=== PATIENT | female | born 1935 | race Caucasian/White ===

== ENCOUNTER 2021-11-14 13:40 | Outpatient (CLI) | payer MEDICARE ==
[~2021-11-14 13:40] MED LIST: ALPR1TAB7 PO; FERR324T4 PO; LEVO75TA PO; LOSA50TA64 PO; MELA5TAB12 PO; MULT-1085 PO; UBID10CA4 PO
== END 2021-11-14 23:59 | disposition home or self-care (01) ==
LOC: RAD 13:40
PROVIDERS: ATTEND Nurse Practitioner Family
DX: R40.4 Transient alteration of awareness (principal)
CPT/HCPCS: 95816

== ENCOUNTER 2022-01-15 11:44 | Emergency (ER) | payer MEDICARE ==
[~2022-01-15] VITALS: Ht 157.5 cm; Wt 71.8 kg
[2022-01-15] MEDS ORDERED: furosemide 40mg/4ml inj IV ONE (14:50)
[2022-01-15 15:09] LABS: BASOPHILS # (AUTO) 0.1 X10'3 (0-0.2); BASOPHILS % (AUTO) 0.9 % (0-1); EOSINOPHILS # (AUTO) 0.2 X10'3 (0-0.9); HEMATOCRIT 37.7 % (35.0-45.0); LYMPHOCYTES # (AUTO) 1.3 X10'3 (1.1-4.8); LYMPHOCYTES % (AUTO) 20.5 % (21-51); MEAN CORPUSCULAR HEMOGLOBIN 25.9 PG (27.0-31.0); MEAN CORPUSCULAR HGB CONC 31.9 g/dL (33.0-36.5); MEAN CORPUSCULAR VOLUME 81.2 FL (78-98); MEAN PLATELET VOLUME 8.3 FL (7.4-10.4); MONOCYTES # (AUTO) 0.7 X10'3 (0-0.9); MONOCYTES % (AUTO) 10.6 % (2-12); NEUTROPHILS # (AUTO) 4.2 X10'3 (1.8-7.7); PLATELET COUNT 189 X10'3 (140-440); RED BLOOD COUNT 4.65 X10'6 (4.20-5.60); RED CELL DISTRIBUTION WIDTH 17.4 % (11.5-14.5); WHITE BLOOD COUNT 6.5 X10'3 (4.5-11.0)
[2022-01-15 15:26] LABS: ALANINE AMINOTRANSFERASE 15 U/L (12-78); ALBUMIN 3.6 G/DL (3.4-5.0); ALBUMIN/GLOBULIN RATIO 0.9 (1.1-1.5); ALKALINE PHOSPHATASE 82 IU/L (46-116); ANION GAP 9 (8-16); ASPARTATE AMINO TRANSFERASE 17 U/L (10-37); BILIRUBIN,TOTAL 0.6 MG/DL (0.1-1.0); BLOOD UREA NITROGEN 20 MG/DL (7-18); BUN/CREATININE RATIO 10.4 (6.6-38.0); CALCIUM 8.8 MG/DL (8.5-10.1); CHLORIDE 97 MMOL/L (99-107); CREATININE 1.93 MG/DL (0.40-0.90); GLUCOSE 104 MG/DL (70-104); POTASSIUM 3.7 MMOL/L (3.5-5.1); SODIUM 135 MMOL/L (135-145); TOTAL CARBON DIOXIDE 28.7 MMOL/L (24-32); TOTAL PROTEIN 7.6 G/DL (6.4-8.2); eGFR 25 ML/MIN
[2022-01-15 17:41] VITALS: BP 118/89
== END 2022-01-15 17:43 | disposition home or self-care (01) ==
LOC: ER 11:45
DX: R60.0 Localized edema (principal); G43.909 Migraine, unspecified, not intractable, without status migrainosus; I10 Essential (primary) hypertension; E03.9 Hypothyroidism, unspecified; I11.9 Hypertensive heart disease without heart failure; F31.9 Bipolar disorder, unspecified; Z79.899 Other long term (current) drug therapy
CPT/HCPCS: 36415; 80053; 83880; 85025; 93005; 96374; 99285; J1940

== ENCOUNTER 2022-02-19 12:13 | Outpatient (CLI) | payer MEDICARE | END 2022-02-19 23:59 | disposition home or self-care (01) | LOC: CARD DIAG 12:13 | PROVIDERS: ATTEND Internal Medicine Cardiovascular Disease | DX: I08.8 Other rheumatic multiple valve diseases (principal); I11.9 Hypertensive heart disease without heart failure; I48.91 Unspecified atrial fibrillation; Z86.73 Personal history of transient ischemic attack (TIA), and cerebral infarction without residual deficits | CPT/HCPCS: 93306 ==

== ENCOUNTER 2022-02-26 07:56 | Day surgery (SDC) | payer MEDICARE ==
[2022-02-25 15:43] LABS: ALBUMIN 3.6 G/DL (3.4-5.0); ANION GAP 8 (8-16); BLOOD UREA NITROGEN 26 MG/DL (7-18); BUN/CREATININE RATIO 14.9 (6.6-38.0); CALCIUM 8.9 MG/DL (8.5-10.1); CHLORIDE 97 MMOL/L (99-107); CREATININE 1.74 MG/DL (0.40-0.90); GLUCOSE 101 MG/DL (70-104); POTASSIUM 4.1 MMOL/L (3.5-5.1); SODIUM 134 MMOL/L (135-145); TOTAL CARBON DIOXIDE 28.7 MMOL/L (24-32); eGFR 28 ML/MIN
[2022-02-25 15:47] LABS: EOSINOPHILS # (AUTO) 0.2 X10'3 (0-0.9); MEAN CORPUSCULAR VOLUME 84.9 FL (78-98); MEAN PLATELET VOLUME 8.5 FL (7.4-10.4); NEUTROPHILS # (AUTO) 4.1 X10'3 (1.8-7.7); WHITE BLOOD COUNT 6.6 X10'3 (4.5-11.0)
[2022-02-25 15:48] LABS: BASOPHILS % (AUTO) 0.3 % (0-1); EOSINOPHILS % (AUTO) 2.5 % (0-6); HEMATOCRIT 40.1 % (35.0-45.0); HEMOGLOBIN 13.2 g/dl (12.0-16.0); LYMPHOCYTES # (AUTO) 1.5 X10'3 (1.1-4.8); LYMPHOCYTES % (AUTO) 23.5 % (21-51); MEAN CORPUSCULAR HEMOGLOBIN 28.1 PG (27.0-31.0); MONOCYTES # (AUTO) 0.7 X10'3 (0-0.9); MONOCYTES % (AUTO) 10.9 % (2-12); NEUTROPHILS % (AUTO) 62.8 % (42-75); PLATELET COUNT 212 X10'3 (140-440); RED BLOOD COUNT 4.72 X10'6 (4.20-5.60); RED CELL DISTRIBUTION WIDTH 27.2 % (11.5-14.5)
[2022-02-25 16:53] LABS: ANISOCYTOSIS 3+; ELLIPTOCYTES 1+; PLATELET ESTIMATE NORMAL
[2022-02-25 16:55] LABS: SCHISTOCYTES FEW
[2022-02-25 16:59] LABS: BURR CELLS FEW
[~2022-02-26] VITALS: Ht 154.9 cm; Wt 67.7 kg
[2022-02-26] VITALS (15 sets, daily range): BP systolic 113–151; BP diastolic 62–81
[2022-02-26] MEDS ORDERED: LORazepam 0.5 MG tablet PO ONE (09:25)
[2022-02-26] MEDS ORDERED: morphine 10mg/ml inj. IV ONE (09:25)
[2022-02-26] MEDS ORDERED: amiodarone 150mg/dext, iso-os 100 ML IV ONE (09:25)
[2022-02-26] MEDS ORDERED: atropine 0.1mg/ml 10ml syringe IV ONE (09:25)
[2022-02-26] MEDS ORDERED: MIDAZolam 1mg/ml 10ml vial IV ONE (09:25)
[2022-02-26] MEDS ORDERED: LOSA25TA41 PO (09:30)
[2022-02-26] MEDS ORDERED: AMIO200T61 PO (09:35)
[2022-02-26] MEDS ORDERED: FURO20TA4 PO (09:35)
[2022-02-26] MEDS ORDERED: APIX5TAB3 PO (09:35)
[2022-02-26] MEDS ORDERED: CARV6.253 PO (09:35)
[2022-02-26] MEDS ORDERED: AMIT10TA6 PO (09:35)
[2022-02-26] MEDS ORDERED: POTA-188 PO (09:38)
[2022-02-26] MEDS ORDERED: Vitamin B12 (09:40)
[2022-02-26] MEDS ORDERED: NAPR220T67 PO (09:40)
[2022-02-26] MEDS ORDERED: Vitamin C (09:40)
[2022-02-26] MEDS ORDERED: pneumococcal 23-VAL P-sac vacc 25 mcg/0.5ml vial IMVAC ONE (14:15)
== END 2022-02-26 12:30 | disposition home or self-care (01) ==
LOC: SSTAY O 07:56
PROVIDERS: ATTEND Internal Medicine Cardiovascular Disease
DX: I48.0 Paroxysmal atrial fibrillation (principal); I10 Essential (primary) hypertension; G43.909 Migraine, unspecified, not intractable, without status migrainosus; F41.9 Anxiety disorder, unspecified; J45.909 Unspecified asthma, uncomplicated; Z79.899 Other long term (current) drug therapy; Z79.01 Long term (current) use of anticoagulants
CPT/HCPCS: 36415; 80048; 85025; 85610; 92960; 93005; J2250; J2274; J7030; 85008; A4620

== ENCOUNTER 2022-09-23 13:45 | Outpatient (CLI) | payer MEDICARE ==
[~2022-09-23 13:45] MED LIST changes: -ALPR1TAB7 PO; +AMIO200T61 PO; +AMIT10TA6 PO; +APIX5TAB3 PO; +CARV6.253 PO; -FERR324T4 PO; +FURO20TA4 PO; +LOSA25TA41 PO; -LOSA50TA64 PO; -MELA5TAB12 PO; -MULT-1085 PO; +NAPR220T67 PO; +POTA-188 PO; -UBID10CA4 PO; +Vitamin B12; +Vitamin C
== END 2022-09-23 23:59 | disposition home or self-care (01) ==
LOC: RAD 13:45
PROVIDERS: ATTEND Internal Medicine Cardiovascular Disease
DX: I08.8 Other rheumatic multiple valve diseases (principal); R06.02 Shortness of breath; E78.5 Hyperlipidemia, unspecified
CPT/HCPCS: 93306

== ENCOUNTER 2024-08-31 15:43 | Inpatient (IN) | payer MEDICARE ==
[~2024-08-31] VITALS: Ht 157.5 cm; Wt 74.0 kg
[~2024-08-31 15:43] MED LIST changes: +AMI200T PO; -AMIO200T61 PO
[2024-08-31 16:40] LABS: BASOPHILS % (AUTO) 0.6 % (0-1); EOSINOPHILS # (AUTO) 0.2 X10'3 (0-0.9); EOSINOPHILS % (AUTO) 2.8 % (0-6); HEMATOCRIT 32.5 % (35.0-45.0); LYMPHOCYTES # (AUTO) 0.9 X10'3 (1.1-4.8); LYMPHOCYTES % (AUTO) 14.8 % (21-51); MEAN CORPUSCULAR HEMOGLOBIN 33.1 PG (27.0-31.0); MEAN CORPUSCULAR HGB CONC 33.9 g/dL (33.0-36.5); MEAN CORPUSCULAR VOLUME 97.6 FL (78-98); MEAN PLATELET VOLUME 8.3 FL (7.4-10.4); MONOCYTES # (AUTO) 0.7 X10'3 (0-0.9); MONOCYTES % (AUTO) 12.7 % (2-12); NEUTROPHILS # (AUTO) 4.1 X10'3 (1.8-7.7); NEUTROPHILS % (AUTO) 69.1 % (42-75); PLATELET COUNT 183 X10'3 (140-440); RED BLOOD COUNT 3.33 X10'6 (4.20-5.60); RED CELL DISTRIBUTION WIDTH 14.4 % (11.5-14.5); WHITE BLOOD COUNT 5.9 X10'3 (4.5-11.0)
[2024-08-31 16:59] LABS: ALANINE AMINOTRANSFERASE 16 U/L (12-78); ALBUMIN 3.4 G/DL (3.4-5.0); ALBUMIN/GLOBULIN RATIO 0.9 (1.1-1.5); ALKALINE PHOSPHATASE 86 IU/L (46-116); ANION GAP 9 (8-16); ASPARTATE AMINO TRANSFERASE 17 U/L (10-37); BILIRUBIN,TOTAL 0.4 MG/DL (0.1-1.0); BLOOD UREA NITROGEN 27 MG/DL (7-18); BUN/CREATININE RATIO 17.1 (10.0-20.0); CHLORIDE 99 MMOL/L (99-107); CREATININE 1.58 MG/DL (0.40-0.90); GLUCOSE 97 MG/DL (70-104); POTASSIUM 4.5 MMOL/L (3.5-5.1); SODIUM 136 MMOL/L (135-145); TOTAL CARBON DIOXIDE 27.7 MMOL/L (24-32); TOTAL PROTEIN 7.2 G/DL (6.4-8.2); eCRCL 19 ML/MIN; eGFR 31 ML/MIN
[2024-08-31 17:32] LABS: APTT 27 SECONDS (22-32); PROTHROMBIN TIME 10.1 SECONDS (9.0-12.0)
[2024-08-31] MEDS: morphine 2 MG/ML inj. syringe IV ONE (17:54)
[2024-08-31] MEDS: K and/or MAG REPLACEMENT MC SCH (20:00)
[2024-08-31] MEDS ORDERED: magnesium sulf-water 4G/100mL 100 ML IV PRN (20:00)
[2024-08-31] MEDS ORDERED: mag hydrox/Alum hydrox/simeth 30ml oral suspension PO PRN (20:00)
[2024-08-31] MEDS ORDERED: morphine 2 MG/ML inj. syringe IV PRN (20:00)
[2024-08-31] MEDS ORDERED: acetaminophen 325mg tablet PO PRN (20:00)
[2024-08-31] MEDS ORDERED: magnesium Cl slow-release 64mg tablet PO PRN (20:00)
[2024-08-31] MEDS ORDERED: potassium Cl 20 mEq SR tablet PO PRN ×2 (20:00)
[2024-08-31] MEDS ORDERED: potassium Cl 40MEQ/1/2NS 520ml 520 ML IV PRN (20:00)
[2024-08-31] MEDS ORDERED: magnesium sulf-water 2g/50mL 50 ML IV PRN (20:00)
[2024-08-31] MEDS: normal saline 1000ml 1,000 ML IV SCH (20:38)
[2024-08-31 20:45] LABS: HEMOGLOBIN A1C 5.1 % (4.5-6.2)
[2024-08-31 20:54] LABS: BILIRUBIN,URINE NEGATIVE (Neg); CLARITY,URINE TURBID (Clear); COLOR,URINE YELLOW (Yellow); GLUCOSE, URINE NEGATIVE (Neg); KETONES,URINE NEGATIVE (Neg); LEUKOCYTE ESTERASE ,URINE MODERATE (Neg); NITRITES, URINE NEGATIVE (Neg); OCCULT BLOOD,URINE TRACE-INTACT (Neg); PROTEIN,URINE 30 mg/dl (Neg); UROBILINOGEN,URINE 0.2 E.U/dL (0.2-1.0)
[2024-08-31 20:56] LABS: PRO BRAIN NATRIURETIC PEPTIDE 1785 PG/ML (0-450)
[2024-08-31 21:00] LABS: BACTERIA,URINE 4+ /HPF (Neg); RBC,URINE 0-2 /HPF (0-2); SQUAMOUS EPITHELIAL CELL,UR FEW /LPF (FEW); UA COLLECTION TYPE VOIDED; WBC,URINE TNTC /HPF (0-4)
[2024-08-31] MEDS: HALLS - SOOTHE MENTHOL 1.8 MG cough drop LOZENGE MM PRN (21:31)
[2024-08-31] MEDS: HYDROcodone/acetaminophen 10/325mg tab PO PRN (22:05)
[2024-09-01] MEDS: CefTRIAXone/D5W-Rocephin 1gm 50 ML IV SCH (02:10)
[2024-09-01] MEDS: ondansetron/PF 4mg/2ml inj IV PRN (02:11)
[2024-09-01 03:41] LABS: BASOPHILS % (AUTO) 0.2 % (0-1); EOSINOPHILS # (AUTO) 0.1 X10'3 (0-0.9); EOSINOPHILS % (AUTO) 0.6 % (0-6); HEMOGLOBIN 10.8 g/dl (12.0-16.0); LYMPHOCYTES # (AUTO) 0.5 X10'3 (1.1-4.8); LYMPHOCYTES % (AUTO) 5.6 % (21-51); MEAN CORPUSCULAR HEMOGLOBIN 33.4 PG (27.0-31.0); MEAN CORPUSCULAR HGB CONC 33.9 g/dL (33.0-36.5); MEAN CORPUSCULAR VOLUME 98.3 FL (78-98); MEAN PLATELET VOLUME 8.4 FL (7.4-10.4); MONOCYTES # (AUTO) 0.9 X10'3 (0-0.9); MONOCYTES % (AUTO) 9.5 % (2-12); NEUTROPHILS % (AUTO) 84.1 % (42-75); PLATELET COUNT 163 X10'3 (140-440); RED BLOOD COUNT 3.25 X10'6 (4.20-5.60); RED CELL DISTRIBUTION WIDTH 14.4 % (11.5-14.5); WHITE BLOOD COUNT 9.5 X10'3 (4.5-11.0)
[2024-09-01 04:09] LABS: ALANINE AMINOTRANSFERASE 18 U/L (12-78); ALBUMIN 3.4 G/DL (3.4-5.0); ALBUMIN/GLOBULIN RATIO 0.9 (1.1-1.5); ALKALINE PHOSPHATASE 78 IU/L (46-116); ANION GAP 11 (8-16); ASPARTATE AMINO TRANSFERASE 18 U/L (10-37); BILIRUBIN,DIRECT 0.2 MG/DL (0-0.3); BILIRUBIN,TOTAL 0.5 MG/DL (0.1-1.0); BLOOD UREA NITROGEN 24 MG/DL (7-18); BUN/CREATININE RATIO 16.4 (10.0-20.0); CALCIUM 8.7 MG/DL (8.5-10.1); CHLORIDE 99 MMOL/L (99-107); CHOL/HDL RATIO 1.8 (0.00-4.99); CHOLESTEROL 158 MG/DL (0-200); CREATININE 1.46 MG/DL (0.40-0.90); FREE T4 (FREE THYROXINE) 0.97 NG/DL (0.73-1.40); GLUCOSE 124 MG/DL (70-104); HDL CHOLESTEROL 89 MG/DL (35-60); LDL CHOLESTEROL 54 MG/DL (50-100); POTASSIUM 4.3 MMOL/L (3.5-5.1); SODIUM 137 MMOL/L (135-145); THYROID STIMULATING HORMONE 39.21 ulU/ml (0.34-4.50); TOTAL CARBON DIOXIDE 27.3 MMOL/L (24-32); TOTAL PROTEIN 7.2 G/DL (6.4-8.2); TRIGLYCERIDES 49 MG/DL (20-135); eCRCL 21 ML/MIN; eGFR 34 ML/MIN
[2024-09-01] MEDS: levoTHYROXINE 75mcg tablet PO SCH (07:00)
[2024-09-01] MEDS: losartan 50mg tablet PO SCH (08:00)
[2024-09-01] MEDS: potassium chloride 10mEq ER tablet PO SCH (08:00)
[2024-09-01] MEDS: carVEDilol 3.125mg tablet PO SCH (08:57)
[2024-09-01] MEDS: aspirin 325mg tablet, delayed-release (Ecotrin) PO SCH (08:57)
[2024-09-01] MEDS: amiodarone 200mg tablet PO SCH (08:57)
[2024-09-01] MEDS: pantoprazole 40mg Tablet.DR PO SCH (08:57)
[2024-09-01] MEDS: morphine 2 MG/ML inj. syringe IV PRN (12:41)
[2024-09-01 18:00] VITALS: BP 167/84; PULSE 64; RESP 16; TEMP 97.9; O2SAT 97
[2024-09-01 20:00] VITALS: BP_SYST 162; BP_SYST 166; BP_DIAS 66; BP_DIAS 73; PULSE 59; PULSE 60
[2024-09-01] MEDS: carvedilol 6.25mg tablet PO SCH (20:08)
[2024-09-01] MEDS: amitriptyline 10mg tablet PO SCH (20:09)
[2024-09-01 21:45] VITALS: RESP 16; O2SAT 97
[2024-09-01 22:00] VITALS: BP 162/66; PULSE 58; RESP 16; TEMP 96.8; O2SAT 95
[2024-09-02 06:00] VITALS: BP 173/73; PULSE 66; RESP 16; TEMP 97.9; O2SAT 94
[2024-09-02 08:13] LABS: BASOPHILS % (AUTO) 0.2 % (0-1); EOSINOPHILS # (AUTO) 0.1 X10'3 (0-0.9); EOSINOPHILS % (AUTO) 0.7 % (0-6); HEMATOCRIT 29.9 % (35.0-45.0); HEMOGLOBIN 10.1 g/dl (12.0-16.0); LYMPHOCYTES # (AUTO) 0.4 X10'3 (1.1-4.8); LYMPHOCYTES % (AUTO) 2.9 % (21-51); MEAN CORPUSCULAR HEMOGLOBIN 33.2 PG (27.0-31.0); MEAN CORPUSCULAR HGB CONC 33.8 g/dL (33.0-36.5); MEAN CORPUSCULAR VOLUME 98.3 FL (78-98); MEAN PLATELET VOLUME 8.5 FL (7.4-10.4); MONOCYTES # (AUTO) 1.3 X10'3 (0-0.9); MONOCYTES % (AUTO) 10.3 % (2-12); NEUTROPHILS # (AUTO) 11.2 X10'3 (1.8-7.7); NEUTROPHILS % (AUTO) 85.9 % (42-75); PLATELET COUNT 160 X10'3 (140-440); RED BLOOD COUNT 3.04 X10'6 (4.20-5.60); RED CELL DISTRIBUTION WIDTH 14.3 % (11.5-14.5)
[2024-09-02 08:31] LABS: ANION GAP 7 (8-16); BLOOD UREA NITROGEN 21 MG/DL (7-18); BUN/CREATININE RATIO 14.3 (10.0-20.0); CALCIUM 8.3 MG/DL (8.5-10.1); CHLORIDE 102 MMOL/L (99-107); CREATININE 1.47 MG/DL (0.40-0.90); GLUCOSE 123 MG/DL (70-104); MAGNESIUM 1.9 MG/DL (1.5-2.4); SODIUM 136 MMOL/L (135-145); TOTAL CARBON DIOXIDE 27.3 MMOL/L (24-32); eCRCL 21 ML/MIN; eGFR 33 ML/MIN
[2024-09-02] MEDS: losartan 25mg tablet PO SCH (08:55)
[2024-09-02] MEDS: Chloraseptic (Phenol) Spray 177ml MM PRN (08:56)
[2024-09-02 10:00] VITALS: BP 158/73; PULSE 69; RESP 16; TEMP 97.6; O2SAT 90
[2024-09-02] MEDS: piperacillin/tazo 3.375gm/50ml 50 ML IV SCH (11:40)
[2024-09-02 18:00] VITALS: BP 132/78; PULSE 68; RESP 16; TEMP 97.8; O2SAT 93
[2024-09-02 22:00] VITALS: BP 170/71; PULSE 62; RESP 19; TEMP 97.6; O2SAT 90
[2024-09-03] VITALS (7 sets, daily range): BP systolic 162–198; BP diastolic 64–85; PULSE 64–78; RESP 16–20; TEMP 97.6–98.8; O2SAT 91–99
[2024-09-03 07:21] LABS: BASOPHILS % (AUTO) 0.1 % (0-1); EOSINOPHILS # (AUTO) 0.2 X10'3 (0-0.9); EOSINOPHILS % (AUTO) 1.6 % (0-6); HEMATOCRIT 29.5 % (35.0-45.0); HEMOGLOBIN 9.9 g/dl (12.0-16.0); LYMPHOCYTES # (AUTO) 0.6 X10'3 (1.1-4.8); LYMPHOCYTES % (AUTO) 4.5 % (21-51); MEAN CORPUSCULAR HEMOGLOBIN 33.4 PG (27.0-31.0); MEAN CORPUSCULAR HGB CONC 33.6 g/dL (33.0-36.5); MEAN CORPUSCULAR VOLUME 99.6 FL (78-98); MEAN PLATELET VOLUME 8.1 FL (7.4-10.4); MONOCYTES # (AUTO) 1.3 X10'3 (0-0.9); MONOCYTES % (AUTO) 10.4 % (2-12); NEUTROPHILS # (AUTO) 10.6 X10'3 (1.8-7.7); NEUTROPHILS % (AUTO) 83.4 % (42-75); PLATELET COUNT 166 X10'3 (140-440); RED BLOOD COUNT 2.96 X10'6 (4.20-5.60); RED CELL DISTRIBUTION WIDTH 14.4 % (11.5-14.5); WHITE BLOOD COUNT 12.7 X10'3 (4.5-11.0)
[2024-09-03 07:48] LABS: ALBUMIN 2.9 G/DL (3.4-5.0); ANION GAP 10 (8-16); BLOOD UREA NITROGEN 19 MG/DL (7-18); CALCIUM 8.7 MG/DL (8.5-10.1); CHLORIDE 101 MMOL/L (99-107); CREATININE 1.36 MG/DL (0.40-0.90); GLUCOSE 112 MG/DL (70-104); MAGNESIUM 1.9 MG/DL (1.5-2.4); SODIUM 136 MMOL/L (135-145); TOTAL CARBON DIOXIDE 25.2 MMOL/L (24-32); eCRCL 22 ML/MIN; eGFR 37 ML/MIN
[2024-09-03] MEDS: hydrALAZINE 20mg/ml inj. IV PRN (17:20)
[2024-09-03] MEDS: magnesium hydroxide 30ml (MOM) UD suspension PO PRN (20:40)
[2024-09-03] MEDS: ziprasidone IM 20mg inj **IM only IM PRN (23:04)
[2024-09-04] VITALS (7 sets, daily range): BP systolic 147–176; BP diastolic 70–95; PULSE 60–70; RESP 13–26; TEMP 97.6–97.9; O2SAT 92–99
[2024-09-04 06:58] LABS: BASOPHILS % (AUTO) 0.3 % (0-1); EOSINOPHILS # (AUTO) 0.2 X10'3 (0-0.9); EOSINOPHILS % (AUTO) 2.9 % (0-6); HEMATOCRIT 31.4 % (35.0-45.0); HEMOGLOBIN 10.6 g/dl (12.0-16.0); LYMPHOCYTES # (AUTO) 0.6 X10'3 (1.1-4.8); LYMPHOCYTES % (AUTO) 7.2 % (21-51); MEAN CORPUSCULAR HEMOGLOBIN 33.2 PG (27.0-31.0); MEAN CORPUSCULAR HGB CONC 33.8 g/dL (33.0-36.5); MEAN CORPUSCULAR VOLUME 98.2 FL (78-98); MEAN PLATELET VOLUME 8.1 FL (7.4-10.4); MONOCYTES % (AUTO) 12.8 % (2-12); NEUTROPHILS % (AUTO) 76.8 % (42-75); PLATELET COUNT 178 X10'3 (140-440); RED BLOOD COUNT 3.19 X10'6 (4.20-5.60); RED CELL DISTRIBUTION WIDTH 14.3 % (11.5-14.5); WHITE BLOOD COUNT 7.8 X10'3 (4.5-11.0)
[2024-09-04 07:48] LABS: ALBUMIN 2.8 G/DL (3.4-5.0); ANION GAP 9 (8-16); BLOOD UREA NITROGEN 18 MG/DL (7-18); BUN/CREATININE RATIO 13.6 (10.0-20.0); CALCIUM 8.7 MG/DL (8.5-10.1); CHLORIDE 101 MMOL/L (99-107); CREATININE 1.32 MG/DL (0.40-0.90); GLUCOSE 110 MG/DL (70-104); MAGNESIUM 2.2 MG/DL (1.5-2.4); POTASSIUM 3.6 MMOL/L (3.5-5.1); SODIUM 137 MMOL/L (135-145); TOTAL CARBON DIOXIDE 26.6 MMOL/L (24-32); eCRCL 23 ML/MIN; eGFR 38 ML/MIN
[2024-09-04] MEDS: losartan 25mg tablet PO ONE (10:41)
[2024-09-04] MEDS: LORazepam 0.5 MG tablet PO ONE (17:16)
[2024-09-04] MEDS: furosemide 20 MG/2 ML vial IV ONE (19:11)
[2024-09-04] MEDS: HYDROcodone/acetaminophen 5mg/325mg tablet PO PRN (19:14)
[2024-09-05 04:46] LABS: BASOPHILS % (AUTO) 0.5 % (0-1); EOSINOPHILS # (AUTO) 0.3 X10'3 (0-0.9); EOSINOPHILS % (AUTO) 4.1 % (0-6); HEMATOCRIT 29.6 % (35.0-45.0); HEMOGLOBIN 10.1 g/dl (12.0-16.0); LYMPHOCYTES # (AUTO) 0.7 X10'3 (1.1-4.8); LYMPHOCYTES % (AUTO) 8.7 % (21-51); MEAN CORPUSCULAR HEMOGLOBIN 33.5 PG (27.0-31.0); MEAN CORPUSCULAR HGB CONC 34.1 g/dL (33.0-36.5); MEAN CORPUSCULAR VOLUME 98.1 FL (78-98); MEAN PLATELET VOLUME 7.7 FL (7.4-10.4); MONOCYTES % (AUTO) 12.7 % (2-12); NEUTROPHILS # (AUTO) 5.8 X10'3 (1.8-7.7); PLATELET COUNT 210 X10'3 (140-440); RED BLOOD COUNT 3.01 X10'6 (4.20-5.60); RED CELL DISTRIBUTION WIDTH 14.1 % (11.5-14.5); WHITE BLOOD COUNT 7.9 X10'3 (4.5-11.0)
[2024-09-05 05:03] LABS: ALBUMIN 2.6 G/DL (3.4-5.0); ANION GAP 7 (8-16); BLOOD UREA NITROGEN 21 MG/DL (7-18); BUN/CREATININE RATIO 13.7 (10.0-20.0); CALCIUM 8.7 MG/DL (8.5-10.1); CHLORIDE 99 MMOL/L (99-107); CREATININE 1.53 MG/DL (0.40-0.90); GLUCOSE 107 MG/DL (70-104); POTASSIUM 3.8 MMOL/L (3.5-5.1); SODIUM 135 MMOL/L (135-145); TOTAL CARBON DIOXIDE 29.4 MMOL/L (24-32); eCRCL 20 ML/MIN; eGFR 32 ML/MIN
[2024-09-05 06:00] VITALS: BP 182/79; PULSE 62; RESP 14; TEMP 96.4
[2024-09-05] MEDS: losartan 50mg tablet PO SCH (07:22)
[2024-09-05 18:00] VITALS: BP 176/73; PULSE 62; RESP 16; TEMP 97.7; O2SAT 96
[2024-09-05 20:00] VITALS: BP_SYST 166; BP_SYST 176; BP_DIAS 77; BP_DIAS 86; PULSE 64
[2024-09-05 22:00] VITALS: BP 166/77; PULSE 64; RESP 18; TEMP 97.7; O2SAT 95
[2024-09-06 06:00] VITALS: BP 139/66; PULSE 57; RESP 16; TEMP 97.2; O2SAT 94
[2024-09-06 08:30] VITALS: RESP 18; O2SAT 97
[2024-09-06 10:00] VITALS: BP 138/40; PULSE 57; RESP 18; TEMP 98.2; O2SAT 95
[2024-09-06] MEDS: sennosides/docusate sodium tablet PO SCH (12:02)
[2024-09-06 13:28] VITALS: RESP 18
== END 2024-09-06 13:30 | DRG 542 ==
LOC: ER 15:43 → UNDOADMIN 20:24 → ED HOLD 20:24 → EDBEDREQ 09-01 14:49 → ED HOLD 09-01 15:40 → ORTHO 4S 09-01 15:40
PROVIDERS: ADMIT Internal Medicine Critical Care Medicine; ATTEND Family Medicine
DX: M80.071A Age-related osteoporosis with current pathological fracture, right ankle and foot, initial encounter for fracture (principal); G93.41 Metabolic encephalopathy; J96.00 Acute respiratory failure, unspecified whether with hypoxia or hypercapnia; N39.0 Urinary tract infection, site not specified; I48.20 Chronic atrial fibrillation, unspecified; N17.9 Acute kidney failure, unspecified; Z16.24 Resistance to multiple antibiotics; Z20.822 Contact with and (suspected) exposure to COVID-19; G43.909 Migraine, unspecified, not intractable, without status migrainosus; E03.9 Hypothyroidism, unspecified; I12.9 Hypertensive chronic kidney disease with stage 1 through stage 4 chronic kidney disease, or unspecified chronic kidney disease; N18.32 Chronic kidney disease, stage 3b; M25.461 Effusion, right knee; J45.909 Unspecified asthma, uncomplicated; F32.A Depression, unspecified; F41.9 Anxiety disorder, unspecified; W18.39XA Other fall on same level, initial encounter; Y92.89 Other specified places as the place of occurrence of the external cause; Y93.89 Activity, other specified; Y99.8 Other external cause status
CPT/HCPCS: 36415; 71045; 73564; 73610; 73700; 80048; 80053; 80061; 80076; 81001; 83036; 83735; 83880; 84439; 84443; 84484; 85025; 85610; 85730; 87077; 87081; 87088; 87186; 87502; 87503; 87811; 93306; 96374; 97110; 97161; 97530; 99285; A4615; A6446; A6449; A6590; G0378; J0360; J0696; J1940; J2270; J2405; J2543; J3486; J7030

== ENCOUNTER 2024-11-15 18:21 | Emergency (ER) | payer MEDICARE ==
[~2024-11-15] VITALS: Ht 172.7 cm; Wt 65.0 kg
[2024-11-15] MEDS ORDERED: SENN-302 PO (19:36)
[2024-11-15] MEDS ORDERED: HYDR-3965 PO (19:36)
[2024-11-15] MEDS: oxyCODONE IR 5mg (immed. release) tablet PO STA (19:42)
[2024-11-15 20:42] VITALS: BP 130/72; PULSE 72; RESP 18; TEMP 98.6; O2SAT 98
== END 2024-11-15 20:44 ==
LOC: ER 18:22
DX: S82.102A Unspecified fracture of upper end of left tibia, initial encounter for closed fracture (principal); E03.9 Hypothyroidism, unspecified; I10 Essential (primary) hypertension; I48.91 Unspecified atrial fibrillation; J45.909 Unspecified asthma, uncomplicated; Z86.73 Personal history of transient ischemic attack (TIA), and cerebral infarction without residual deficits; X58.XXXA Exposure to other specified factors, initial encounter; Y93.89 Activity, other specified; Y92.89 Other specified places as the place of occurrence of the external cause; Y99.8 Other external cause status
CPT/HCPCS: 29505; 73590; 99284; A6449

== ENCOUNTER 2024-11-25 10:41 | Outpatient (CLI) | payer MEDICARE ==
[~2024-11-25 10:41] MED LIST changes: -AMI200T PO; -AMIT10TA6 PO; -APIX5TAB3 PO; -CARV6.253 PO; -FURO20TA4 PO; -LEVO75TA PO; -LOSA25TA41 PO; -NAPR220T67 PO; -POTA-188 PO; +SENN-302 PO; -Vitamin B12; -Vitamin C
[2024-11-27] MEDS ORDERED: LOSA100T58 PO (23:42)
[2024-11-27] MEDS ORDERED: HYDR-3973 PO (23:42)
[2024-11-27] MEDS ORDERED: PANT-47 PO (23:42)
[2024-11-27] MEDS ORDERED: DOCU-148 PO (23:42)
[2024-11-27] MEDS ORDERED: LACT-373 PO (23:42)
[2024-11-27] MEDS ORDERED: SYN0.088T PO (23:42)
[2024-11-27] MEDS ORDERED: ASPI-611 PO (23:42)
[2024-11-27] MEDS ORDERED: HYDR-3965 PO (23:42)
[2024-11-27] MEDS ORDERED: ONDA-243 PO (23:42)
[2024-11-27] MEDS ORDERED: AMIO200T72 PO (23:42)
[2024-11-27] MEDS ORDERED: BISA-155 PO (23:42)
[2024-11-27] MEDS ORDERED: AMIT50TA15 PO (23:42)
[2024-11-27] MEDS ORDERED: MELA5TAB12 PO (23:42)
[2024-11-27] MEDS ORDERED: FENT-90 TOP (23:42)
[2024-11-27] MEDS ORDERED: CARV-50 PO (23:42)
[2024-11-27] MEDS ORDERED: SENN-360 PO (23:42)
== END 2024-11-25 23:59 | disposition home or self-care (01) ==
LOC: RAD 10:41
PROVIDERS: ATTEND Podiatrist Foot & Ankle Surgery
DX: S82.51XA Displaced fracture of medial malleolus of right tibia, initial encounter for closed fracture (principal); S82.842A Displaced bimalleolar fracture of left lower leg, initial encounter for closed fracture; M25.471 Effusion, right ankle; S93.01XA Subluxation of right ankle joint, initial encounter; S82.843A Displaced bimalleolar fracture of unspecified lower leg, initial encounter for closed fracture; X58.XXXA Exposure to other specified factors, initial encounter; Y93.89 Activity, other specified; Y92.89 Other specified places as the place of occurrence of the external cause; Y99.8 Other external cause status
CPT/HCPCS: 73700

== ENCOUNTER 2025-03-04 21:19 | Emergency (ER) | payer MEDICARE ==
[~2025-03-04] VITALS: Ht 160 cm; Wt 71.0 kg
[~2025-03-04 21:19] MED LIST changes: +AMIO200T72 PO; +AMIT50TA15 PO; +ASPI-611 PO; +BISA-155 PO; +CARV-50 PO; +DOCU-148 PO; +FENT-90 TOP; +HYDR-3965 PO; +HYDR-3973 PO; +LACT-373 PO; +LOSA100T58 PO; +MELA5TAB12 PO; +ONDA-243 PO; +PANT-47 PO; +SENN-360 PO; +SYN0.088T PO
[2025-03-04] MEDS: acetaminophen 325mg tablet PO ONE (21:59)
--- NOTE | 2025-03-04 22:35 | RADIOLOGY REPORT ---
EXAM: CT CT HEAD INDICATION: Fall, head injury TECHNIQUE: CT of the head without intravenous contrast. Radiation Dose : 1. Head: CT Dose: CTDI volume is 55.05 mGy. Dose-length product is 983.81 mGy*cm The dose indicators for CT are the volume Computed Tomography (CT) Dose Index (CTDIvol) and the Dose Length Product (DLP), and are measured in units of mGy and mGy-cm, respectively. These indicators are not patient dose, but values generated from the CT scanner acquisition factors. The report includes radiation exposure data for exposures received during this examination. COMPARISON: CT CT HEAD on DOS: 11/27/24 FINDINGS: There is no evidence of acute intracranial hemorrhage, extra-axial collection, mass effect, midline s hift, herniation or hydrocephalus. Increased prominence of the ventricles, sulci and cisterns is consistent with the sequelae of atrophi c cortical volume loss. The mccormick-white differentiation is intact. Diffuse confluent periventricular and subcortical white matter hypoattenuation is nonspecific but may be related to small vessel ischemic disease. The visualized paranasal sinuses and mastoid air cells are clear. The surrounding soft tissues and osseous structures are unremarkable. Extensive atherosclerotic vascular calcification of the intracranial vessels. IMPRESSION: 1. No acute intracranial abnormality. 2. Chronic sequelae of microvascular disease and atrophic cortical volume loss. 3. Extensive atherosclerotic vascular disease. Radiation optimization: All CT scans at this facility use at least one of these dose optimization philippe hniques: automated exposure control mA and/or kV adjustment per patient size (includes targeted exam s where dose is matched to clinical indication) or iterative reconstruction.
--- NOTE | 2025-03-04 22:52 | RADIOLOGY REPORT ---
EXAM: CT CT CERVICAL SPINE INDICATION: Fall, head injury EXAM DATE: 03/04/2025 10:03 PM COMPARISON: None TECHNIQUE: Multiple axial CT images of the cervical spine were obtained using bone algorithm. Axial a nd coronal reformatting was done. Bone and soft tissue windows were reviewed. Radiation Dose Information: CT Dose: CTDI volume is 23.18 mGy. Dose-length product is 431.6 mGy*cm FINDINGS: There is no acute displaced fracture. There are degenerative changes of the cervical spine characterized by endplate osteophytosis and int ervertebral disc space narrowing. There is minimal grade 1 anterolisthesis of the T1-C3, C3 on C4, an d C7 on T1. There is no high-grade spinal stenosis. Degenerative uncovertebral and facet hypertrophy contribute to multilevel neural foraminal stenosis. The paraspinal soft tissues and lung apices are unremarkable. IMPRESSION: 1. No evidence of acute cervical spine fracture. 2. Degenerative changes of the cervical spine as detailed. 3. All CT scans at this medical facility are performed using dose modulation techniques as appropriat e to a performed exam including the following: Automated exposure control was utilized; adjustment of the MA and/or KV according to patient size; and use of iterative reconstruction technique.
--- NOTE | 2025-03-04 23:09 | RADIOLOGY REPORT ---
CHEST RADIOGRAPH Indication: FX RIGHT HIP Technique: Single frontal view of the chest was obtained COMPARISON: DI CHEST,SINGLE VIEW on DOS: 11/29/24, DI CHEST,SINGLE VIEW on DOS: 11/27/24, DI CHEST,SING LE VIEW on DOS: 09/04/24, DI CHEST,SINGLE VIEW on DOS: 08/31/24 FINDINGS: Lines and Tubes: None Lungs: Clear Pleura: No effusion. No pneumothorax. Cardiomediastinal contours: Cardiomegaly. Atherosclerotic vascular calcifications. Bones: Unremarkable IMPRESSION: 1. Cardiomegaly.
[2025-03-04] MEDS: morphine 4 MG/ML inj SYRINge IV ONE (23:32)
[2025-03-04] MEDS: ondansetron/PF 4mg/2ml inj IV ONE (23:32)
--- NOTE | 2025-03-04 23:35 | RADIOLOGY REPORT ---
CLINICAL INDICATION: Fall, right hip pain TECHNIQUE: DI HIP,UNI 4VWS (INCLUDE PELVIS) Comparison: None FINDINGS/IMPRESSION: : Linear lucency traverses the subtrochanteric proximal femur and aligns with a superimposed skin fold on all images. This may represent a nondisplaced fracture and confirmatory CT imaging may be benefici al. Degenerative changes of the bilateral hips include joint space narrowing, marginal osteophytosis and acetabular and femoral subchondral sclerosis. Soft tissues are unremarkable.
--- NOTE | 2025-03-05 00:38 | RADIOLOGY REPORT ---
History: fall, right hip pain Comparison Study: None Technique: Multidetector spiral CT of the pelvis was performed from iliac crests to pubic symphysis. 100 cc of intravenous contrast was administered during this examination. Portal venous imaging was obtained. Axial, coronal and sagittal multiplanar reformats were performed by the technologist on a separate workstation. Radiation Dose : CT Dose: CTDI volume is 19.78 mGy. Dose-length product is 617.17 mGy*cm Findings: There is no acute displaced fracture. There is a chronic fracture of the right inferior pubic ramus. There are degenerative changes of the hips characterized by joint space narrowing. There is osteopeni a. Visualized portions of the pelvis demonstrate atherosclerotic aortoiliac calcifications. There is col onic diverticulosis. There is asymmetry of the right iliopsoas musculature. There is diffuse subcutan eous edema. IMPRESSION: 1. No acute displaced fracture. 2. Asymmetry of the iliopsoas musculature, with the right appearing larger than the left. An acute p rocess such as hematoma or infectious/inflammatory process cannot be excluded. If clinical symptoms persist, further evaluation with MRI may be beneficial.
--- NOTE | 2025-03-05 03:46 | Physician Documentation ---
History of Present Illness ~ Chief Complaint: Mechanical Fall Stated Complaint: HIP PAIN Time Seen by MD: : Primary Medical Doctor: rosario Mode of Arrival: EMS HPI 89-year-old female, who presents with a fall, with head injury and hip pain. The patient tells me that she was trying to reach something out of her bed, when she fell, landing on her right hip, and hitting the front of her head. She reports having a mild frontal headache. She also reports some generalized neck pain. She reports pain in her right hip, especially with movement. She denies any other injuries initially. She does report having fractured her right ankle, and so she is essentially bed- bound and not weight-bearing on the right leg. No fevers or infectious symptoms. No nausea or vomiting. Tetanus within 5 Years?: Yes Medication Reconciliation Allergies: Coded Allergies: No Known Allergies (Unverified , 03/04/25) Scheduled Amiodarone HCl* (Amiodarone HCl*), 1 TAB PO DAILY, (Reported) Amitriptyline Hcl* (Elavil*), 10 MG PO HS, (Reported) Aspirin (Aspir 81), 1 TAB PO DAILY, (Reported) Bisacodyl (Dulcolax), 2 TAB PO UD, (Reported) Carvedilol* (Coreg*), 0.5 TAB PO Q12H, (Reported) Docusate Sodium (Colace), 1 CAP PO Q12H, (Reported) Fentanyl Patch 12 MCG* (Duragesic 12 MCG*), 1 PATCH TOP Q72H, (Reported) Lactulose (Lactulose), 30 ML PO Q12H, (Reported) Levothyroxine Sodium* (Synthroid*), 100 MCG PO DAILY, (Reported) Losartan Potassium (Losartan Potassium), 1 TAB PO DAILY, (Reported) Melatonin (Melatonin), 1 TAB PO HS, (Reported) Pantoprazole Sodium (PROTONIX tablet), 1 TAB PO DAILY, (Reported) Sennosides (Senna), 1 TAB PO Q12H, (Reported) Sennosides/Docusate Sodium (Senna Plus 8.6-50 mg Tablet), 1 TAB PO DAILY Scheduled PRN Hydrocodone Bit/Acetaminophen 5/325 MG (Pinckney 5/325 MG), 1 TAB PO Q6H PRN for pain, (Reported) Hydrocodone Bit/Acetaminophen (Hydrocodone-Apap 10-325 Tablet), 1 TABLET PO Q4H PRN for moderate or severe pain 4-10, (Reported) Miscellaneous Medications ONDANSETRON ODT 4mg tablet (Ondansetron Odt), 4 MG PO, (Reported) Past Medical History Past Medical History: CVA/TIA/Stroke, Migraine, Seizures, Atrial Fibrillation, Hypertension, Asthma, GI Bleed, Hemorrhoids, Hypothyroidism, Anxiety, Depression Past Surgical History: noncontributory Review of Systems Constitutional: Denies: fever Neurological: Reports: headache Musculoskeletal: Reports: joint pain Physical Exam Vital Signs: Temperature: 98.4, Source: Oral, Heart Rate: 61, Respiratory Rate: 16, BP: 160/73, Pulse Oximetry: 99, Weight: 71.000 Oxygen Flow Rate: 0 Physical Exam General: This is an elderly woman, lying quietly in bed, smiling HEENT: Small contusion to the right forehead, with no overlying abrasion or laceration Neck: Mild generalized tenderness on palpation of the muscles of the neck, without focal bony tenderness Heart: Regular rate and rhythm, normal-appearing peripheral perfusion Lungs: normal work of breathing, normal oxygen saturation on room air Abdomen: Soft, nondistended, nontender all quadrants Extremities: Warm and well-perfused Upper extremities: The patient moves both upper extremities without pain or limitation. Left lower extremity: The patient moves this extremity without pain or limitation Right lower extremity: The patient has tenderness on palpation over the lateral hip and greater trochanter region. She does report pain with hip flexion and rotation Neuro: Alert and oriented to self and location Psychiatric: Calm and cooperative with exam Progress Results/Orders Results/Orders Orders - BLAIR LEZAMA MD Ct Head (03/04/25 21:45) Ct Cervical Spine (03/04/25 21:45) Hip,Uni 4vws (Include Pelvis) (03/04/25 21:46) Chest,Single View (03/04/25 ) Ct Pelvis (03/05/25 00:00) Ct T&L Spine (03/05/25 01:19) Completed Orders - BLAIR LEZAMA MD Ct Head (03/04/25 21:45) Ct Cervical Spine (03/04/25 21:45) Hip,Uni 4vws (Include Pelvis) (03/04/25 21:46) Acetaminophen 325mg Tablet (Tylenol Tabl (03/04/25 21:50) Chest,Single View (03/04/25 ) Morphine 4mg/Ml Inj. (Morphine Inj.) (03/04/25 23:20) Ondansetron Inj. (Zofran 4mg/2ml Vial) (03/04/25 23:20) Ct Pelvis (03/05/25 00:00) Ct T&L Spine (03/05/25 01:19) Medications Received in ER Medications (Trade) Dose Ordered Sig/Asaf Route PRN Reason Start Time Stop Time Status Last Admin Dose Admin (Tylenol tablet) 650 mg ONCE ONCE PO 03/04/25 21:50 03/04/25 21:51 DC 03/04/25 21:59 650 MG (morphine inj.) 4 mg ONCE ONCE IV 03/04/25 23:20 03/04/25 23:21 DC 03/04/25 23:32 4 MG (Zofran 4mg/2ml vial) 4 mg ONCE ONCE IV 03/04/25 23:20 03/04/25 23:21 DC 03/04/25 23:32 4 MG Vital Signs 03/04/25 03/04/25 03/04/25 03/05/25 21:24 22:36 23:32 00:00 Temp 98.4 Pulse 60 61 Resp 16 18 16 16 B/P (MAP) 173/90 159/70 (99) Pulse Ox 97 99 O2 Flow Rate 0 0 03/05/25 01:00 Pulse 61 Resp 16 B/P (MAP) 160/73 (102) Pulse Ox 99 EKG/XRAY/CT/US/VASC/MRI Bone/Soft Tissue X-Ray (Ext.) : Additional Comment I personally reviewed the x-ray, and it shows: The hip x-ray does not show a dislocation, there is a possible lucency through the femoral neck although does not appear displaced, no obvious pelvic fracture CT : Impression I personally reviewed the CT scan, and this shows no acute fracture in the cervical spine, no skull fracture, no intracranial hemorrhage Medical Decision Making Differential Dx:Considerations: Include: Closed head injury, Fracture(s), Cerebral contusion, Spine injury, Abrasion(s), Contusion(s), Hematoma(s) Additional Comment The patient presents with a fall, with head injury and right hip pain. A CT scan of the head and neck was obtained which shows no acute fracture or hemorrhage. An x-ray of the right hip was obtained, which was difficult to interpret, there was a possible lucency but no definite fracture. A CT scan of the pelvis was then obtained, which does not show a pelvic or hip fracture. The patient's daughter then arrived, and was concerned that she may have a back injury. On exam she does have some mild generalized tenderness on palpation of her lower spine. The CT scan of the spine was then obtained, which also shows no acute fracture. Her emergency room date was prolonged due to the imaging and difficulties with her history due to her dementia. I did offer several times to the daughter, to admit the patient for pain control and further treatment. However, given that she has no fracture, and has significant resources to help take care of her at her facility, they declined. She will be discharged with symptomatic treatment. Departure Time of Disposition: 04:12 Disposition: 01 HOME / SELF CARE / HOMELESS Impression: Primary Impression: Fall Additional Impression: Contusion, hip and thigh Condition: Stable Discharge Instructions: Contusion Referrals: NO PRIMARY CARE PROVIDER (PCP) Education Educated: Patient, Family Educated regarding: diagnosis, treatment Signature Scribe Signature: rafa Attestation: BLAIR Mendez MD Mar 05, 2025 03:46
--- NOTE | 2025-03-05 03:53 | RADIOLOGY REPORT ---
EXAM: CT CT T L SPINE HISTORY: Fall, low back pain COMPARISON: None CTDIvol 29.45 mGy, DLP 2638.65 mGy*cm. TECHNIQUE: Multiple axial CT images of the spine were obtained using bone algorithm. Axial and coron al reformatting was done. Bone and soft tissue windows were reviewed. FINDINGS: Marked S shaped scoliosis includes a dextroscoliotic component of the thoracic spine having its apex at the T6-T7 interspace and a levoscoliotic component having its apex at the T12-L1 interspace. Anterolisthesis of C7 on T1 measures approximately 4 mm. Multilevel disc height loss with adjacent en dplate sclerosis and bilateral facet hypertrophy throughout the thoracic spine. No CT evidence of definite acute fracture, spinal dislocation, or significant appearing acute subluxa tion is seen. The visualized paraspinal soft tissues are grossly unremarkable. Atherosclerotic vascular calcifications. IMPRESSION: 1. No definite CT evidence of acute fracture or dislocation of the bony thoracolumbar spine. 2. Marked S shaped scoliosis, dextroscoliotic within the thoracic spine and levoscoliotic within the region of the thoracolumbar junction. 3. Degenerative change including anterolisthesis of C7 on T1.
[2025-03-05 06:30] VITALS: BP 162/80; PULSE 62; TEMP 98.4; O2SAT 95
[2025-03-05 06:37] VITALS: RESP 18
--- NOTE | 2025-03-05 06:49 | RADIOLOGY REPORT ---
CLINICAL INDICATION: Post fall TECHNIQUE: Left DI ANKLE,LIMITED (AP/LAT) Comparison: None FINDINGS/IMPRESSION: : There is no evidence of acute fracture or dislocation. Soft tissues are unremarkable. Osteopenia.
--- NOTE | 2025-03-05 06:50 | RADIOLOGY REPORT ---
CLINICAL INDICATION: PAIN TO BOTH ANKLES TECHNIQUE: DI ANKLE,LIMITED (AP/LAT) Comparison: None FINDINGS/IMPRESSION: : Diffuse osteopenia limits sensitivity of the examination. Chronic appearing fractures of the distal fibula and medial malleolus. Diffuse soft-tissue swelling and edema. Ankle mortise is intact.
--- NOTE | 2025-03-05 10:16 | ELECTROCARDIOGRAPH REPORT ---
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
== END 2025-03-05 08:16 | disposition home or self-care (01) ==
LOC: ER 21:20
DX: S00.83XA Contusion of other part of head, initial encounter (principal); S70.01XA Contusion of right hip, initial encounter; I10 Essential (primary) hypertension; I48.91 Unspecified atrial fibrillation; E03.9 Hypothyroidism, unspecified; J45.909 Unspecified asthma, uncomplicated; G43.909 Migraine, unspecified, not intractable, without status migrainosus; F41.9 Anxiety disorder, unspecified; F32.A Depression, unspecified; Z86.73 Personal history of transient ischemic attack (TIA), and cerebral infarction without residual deficits; W18.39XA Other fall on same level, initial encounter; Y93.89 Activity, other specified; Y92.89 Other specified places as the place of occurrence of the external cause; Y99.8 Other external cause status
CPT/HCPCS: 70450; 71045; 72125; 72128; 72131; 72192; 73503; 73600; 93005; 96374; 96375; 99285; J2270; J2405